=== PATIENT | female | born 1975 | race Caucasian/White ===

== ENCOUNTER 2021-01-17 13:18 | Emergency (ER) | payer MEDICAID, SELFPAY ==
[2021-01-17 13:30] VITALS: BP 136/94; PULSE 90; RESP 19; TEMP 36.7; O2SAT 98; BMI 21.9
--- NOTE | 2021-01-17 14:10 | HMH.EDUTC ---
[facility] Disposition Clinical Impression: Bronchitis Sinusitis Qualifiers: Sinusitis location: frontal Chronicity: acute Recurrence: non-recurrent Qualified Code(s): J01.10 - Acute frontal sinusitis, unspecified Disposition: Home, Self-Care Condition on Discharge: Good Instructions: DI for Sinusitis Additional Instructions: You have been tested for COVID19. Your results should be back later tonight. Take meds as directed. Prescriptions: Brompheniramine/Pseudoephed/Dm [Bromfed DM Cough Syrup 5mL] 5 - 10 ml PO Q4HP PRN 10 Days #240 syrup PRN Reason: Cough Transmission Status: Pending to [facility] # predniSONE [Prednisone 20mg Tab] 20 mg PO BID 5 Days #10 tab Transmission Status: Pending to [facility] # Azithromycin [Zithromax 500mg Tab] 500 mg PO DAILY #3 tab Transmission Status: Pending to [facility] # Referrals: Amira Chavez [Primary Care Provider] - Time of Disposition: 14:18 Medical Decision Making - [place] Inquiry Pt receiving controlled substance: No Vital Signs: 01/17/21 13:30 Temperature 98.1 F Temperature Source Oral Pulse Rate [Right Brachial] 90 Respiratory Rate 19 Blood Pressure [Right Arm] 136/94 H Blood Pressure Mean [Right Arm] 108 Blood Pressure Source [Right Arm] Automatic Cuff Blood Pressure Position [Right Arm] Sitting 02 Sat by Pulse Oximetry 98 Oxygen Delivery Method Room Air - Lab Data Lab results reviewed: Yes: I reviewed the patient's lab results. Orders (Tests/Meds): ORDERS Category Date Time Status Covid-19 Nasal PCR ([facility]) Routine Lab 01/17/21 13:40 Received [facility] HPI - General Stated complaint: covid symtoms Time Seen by Provider: 01/17/21 14:18 Mode of Arrival: Ambulatory Source of Information: Patient Limitations: No Limitations Description of Symptoms (Recalled from Triage Doc. by RN): PATIENT C/O COUGH, SORE THROAT, WEAKNESS, AND MUSCLE PAIN ON AND OFF X 2 WEEKS HEENT Symptoms (Recalled from RN notes): No Resp Symptoms (Recalled from RN notes): No Skin Symptoms (Recalled from RN notes): No MS Symptoms (Recalled from RN notes): No Functional Status (Recalled from RN notes): WNL - History of Present Illness Provider Complaint: Cough, sore throat, weakness, body aches, ear pain, sinus congestion X 2 weeks. Cough is productive. No fever. Has had some nausea and diarrhea. No rash. No vomiting. No known exposure to COVID19. Onset (ago): week(s) (2) Relieving factors: none Exacerbating factors: none Associated symptoms: cough, headaches, malaise, nausea/vomiting, shortness of breath Treatments prior to arrival: none - Related Data Previous Rx's Medication Instructions Recorded Azithromycin [Zithromax 500mg 500 mg PO DAILY #3 tab 01/17/21 Tab] Brompheniramine/Pseudoephed/Dm 5 - 10 ml PO Q4HP PRN 10 Days #240 01/17/21 [Bromfed DM Cough Syrup 5mL] syrup predniSONE [Prednisone 20mg 20 mg PO BID 5 Days #10 tab 01/17/21 Tab] Allergies Allergy/AdvReac Type Severity Reaction Status Date / Time Penicillins Allergy Verified 01/17/21 14:10 Sulfa (Sulfonamide Allergy Verified 01/17/21 14:10 Antibiotics) - Worker's Comp Is this a Worker's Comp case?: No [facility] History - Hepatitis A Screen Drug use history?: No High risk sexual behaviors?: No History of sexually transmitted infection?: No Currently employed?: No Childcare worker?: No Do you have indoor plumbing?: Yes Do you have electricity?: Yes Attestation statement:: This patient has been screened for Hepatitis A risk factors. I have reviewed the patient's past medical history: Yes - Social History Alcohol Intake: never Occupational Status: other ROS Obtained: Yes All systems reviewed & no additional complaints - Constitutional Constitutional: Reports body ache, Reports chills, Denies fever(s), Reports malaise - ENT Ears, Nose, Mouth, and Throat: Reports ear discharge, Reports facial pain, Reports
[2021-01-17 14:19] VITALS: BP 136/94; PULSE 90; RESP 19; TEMP 36.7; O2SAT 98
[2021-01-17 14:30] LABS: UTC Strep Screen (Rapid) Negative (Negative)
== END 2021-01-17 14:23 | disposition home or self-care (01) ==
PROVIDERS: Emergency Provider Physician Assistant; PCP Family Medicine
DX: Z20.822 Contact with and (suspected) exposure to COVID-19 (principal); J20.9 Acute bronchitis, unspecified; J01.10 Acute frontal sinusitis, unspecified
CPT/HCPCS: 87880; 99202; G0463; U0003

== ENCOUNTER 2021-01-30 22:28 | Emergency (ER) | payer MEDICAID, SELFPAY ==
[2021-01-30 22:37] VITALS: BP 138/95; PULSE 121; RESP 20; TEMP 37.1; O2SAT 98; BMI 21.2
--- NOTE | 2021-01-30 23:01 | ECG_ITS ---
APPROVED REPORT Exam: Resting ECG HR:98 bpm ECG Measurements Heart Rate 98 AXES WA 146 P 77 QRSd 80 QRS 82 QT 352 T 74 QTc 449 Conclusion Normal sinus rhythm Normal ECG Electronically signed by : Jared Canales, 01/31/2021 09:06:31
[2021-01-30 23:04] LABS: Basophils # 0.1 K/mm3 (0-0.2); Basophils % 0.9 % (0.1-2.0); Eosinophils # 0.1 K/mm3 (0.0-0.4); Eosinophils % 1.7 % (0.1-12.0); Hematocrit 41.5 % (37.0-47.0); Hemoglobin 13.6 g/dL (12.2-16.2); Lymphocytes # 3.8 K/mm3 (0.7-4.5); Lymphocytes % 61.7 % (10-50); Mean Corpuscular HGB Conc 32.7 g/dL (31.8-35.4); Mean Corpuscular Hemoglobin 30.1 pg (27.0-31.2); Mean Corpuscular Volume 92.1 fl (81-99); Mean Platelet Volume 7.3 fl (7.4-10.4); Monocytes # 0.3 K/mm3 (0.1-1.0); Neutrophils # 1.9 K/mm3 (1.8-7.8); Neutrophils % 30.8 % (37.0-80.0); Platelet Count 270 K/mm3 (142-424); Red Blood Count 4.51 M/mm3 (4.20-5.40); Red Cell Distribution Width 14.2 % (11.5-17.5); White Blood Count 6.1 K/mm3 (4.8-10.8)
[2021-01-30 23:07] LABS: Alanine Aminotransferase 21 U/L (12-78); Albumin Level 4.8 g/dl (3.5-5.0); Albumin/Globulin Ratio 1.7 (1.1-1.8); Alkaline Phosphatase 52 U/L (38-126); Anion Gap 11.9 mEq/L (5-15); Aspartate Amino Transferase 38 U/L (14-36); Bilirubin,Total 0.5 mg/dl (0.2-1.3); Blood Urea Nitrogen 10 mg/dl (7-17); Carbon Dioxide 21 mmol/L (22.0-30.0); Chloride 116 mmol/L (98-107); Creatinine Clearance Estimated 122 mL/min (50-200); Estimated Glomerular Filt Rate 108 ml/min (>60); GFR (African American) 131 ML/MIN (>60); Globulin 2.9 g/dL (1.3-3.2); Glucose 117 mg/dl (74-100); MANUAL DIFFERENTIAL MANUAL DIFFERENTIAL (MANUAL DIFF); Potassium 3.9 mmoL/L (3.5-5.1); Sodium 145 mmol/L (136-145); Total Protein,Serum 7.7 g/dl (6.3-8.2)
[2021-01-30 23:07] LABS: Microscopic, Urine URINE MICROSCOPIC (MICROSCOPIC)
[2021-01-30 23:08] LABS: Ethyl Alcohol 217 mg/dl (0-10)
[2021-01-30 23:11] LABS: Appearance,Urine CLEAR (Clear); Bilirubin,Urine Negative (Negative); Blood, Urine Negative (Negative); Color,Urine YELLOW (Yellow); Glucose,Urine (UA) Negative (Negative); Ketones,Urine Negative (Negative); Leukocyte Esterase,Urine Negative (Negative); Nitrate,Urine Negative (Negative); Protein,Urine Negative (Negative); Specific Gravity, Urine <= 1.005 (1.005-1.030); Urobilinogen,Urine 0.2 EU/dl (0.2)
[2021-01-30 23:13] LABS: Acetaminophen < 10 ug/ml (10-30); Salicylate < 1.0 mg/dL (2.0-20.0)
--- NOTE | 2021-01-30 23:19 | HMH.EDMCLR ---
ED Disposition Clinical Impression: Self-harm, Alcohol use Depression Qualifiers: Depression Type: major depressive disorder Major depression recurrence: unspecified whether recurrent Active/Remission status: remission status unspecified Qualified Code(s): F32.9 - Major depressive disorder, single episode, unspecified Disposition: Xfer Psychiatric Hosp Condition on Discharge: Good Instructions: DI for Depression -- Adult Additional Instructions: see pcp for follow up Referrals: Amira Chavez [Primary Care Provider] - - Critical Care Critical Care Time: No Attestation: On 01/30/21, the high probability of a clinically significant, sudden or life threatening deterioration of the following system(s) required my full and direct attention, intervention and personal management. The time I documented below is in addition to time spent performing reported procedures but includes the following listed in this critical care notation. Medical Decision Making - Medical Records Medical records reviewed: Yes: I reviewed the patient's medical records. - [place] Inquiry Pt receiving controlled substance: No Vital Signs: 01/30/21 22:37 01/30/21 23:54 01/31/21 00:39 Temperature 98.7 F Temperature Source Oral Pulse Rate 90 87 Pulse Rate [Right] 121 H Respiratory Rate 20 Blood Pressure 137/88 122/83 Blood Pressure [Right Arm] 138/95 H Blood Pressure Mean 95 Blood Pressure Mean [Right Arm] 109 02 Sat by Pulse Oximetry 98 96 95 01/31/21 01:00 01/31/21 01:30 01/31/21 02:24 Temperature Temperature Source Pulse Rate 88 82 82 Pulse Rate [Right] Respiratory Rate Blood Pressure 116/82 140/96 H 121/77 Blood Pressure [Right Arm] Blood Pressure Mean 95 106 Blood Pressure Mean [Right Arm] 02 Sat by Pulse Oximetry 95 97 97 01/31/21 02:30 01/31/21 03:00 Temperature Temperature Source Pulse Rate 78 84 Pulse Rate [Right] Respiratory Rate Blood Pressure 123/78 126/79 Blood Pressure [Right Arm] Blood Pressure Mean 93 95 Blood Pressure Mean [Right Arm] 02 Sat by Pulse Oximetry 97 97 - Lab Data Lab results reviewed: Yes: I reviewed the patient's lab results. Lab Results 01/30/21 22:50: WBC 6.1, RBC 4.51, Hgb 13.6, Hct 41.5, MCV 92.1, MCH 30.1, MCHC 32.7, RDW 14.2, Plt Count 270, MPV 7.3 L, Neut % (Auto) 30.8 L, Lymph % (Auto) 61.7 H, Lane % (Auto) 5.0, Eos % (Auto) 1.7, Baso % (Auto) 0.9, Neut # (Auto) 1.9, Lymph # (Auto) 3.8, Lane # (Auto) 0.3, Eos # (Auto) 0.1, Baso # (Auto) 0.1, Total Counted 100, Neutrophils % (Manual) 33 L, Lymphocytes % (Manual) 46, Atypical Lymphs % 9.0, Monocytes % (Manual) 9, Eosinophils % (Manual) 3, Platelet Estimate Normal, RBC Morphology Normal 01/30/21 22:50: Sodium 145, Potassium 3.9, Chloride 116 H, Carbon Dioxide 21 L, Anion Gap 11.9, BUN 10, Creatinine 0.60, Estimated Creat Clear 122, Estimated GFR 108, Est GFR ( Amer) 131, Glucose 117 H, Calcium 9.0, Total Bilirubin 0.5, AST 38 H, ALT 21, Alkaline Phosphatase 52, Total Protein 7.7, Albumin 4.8, Globulin 2.9, Albumin/Globulin Ratio 1.7, TSH 2.02, Salicylates < 1.0 L, Acetaminophen < 10 L 01/30/21 22:50: Plasma/Serum Alcohol 217 H 01/30/21 22:50: Free T4 1.34 01/30/21 23:00: Urine Color Yellow, Urine Appearance Clear, Urine pH 6.0, Ur Specific [place] <= 1.005, Urine Protein Negative, Urine Glucose (UA) Negative, Urine Ketones Negative, Urine Blood Negative, Urine Nitrate Negative, Urine Bilirubin Negative, Urine Urobilinogen 0.2, Ur Leukocyte Esterase Negative, Ur Squamous Epith Cells 3-5 01/30/21 23:00: Urine Opiates Screen Negative, Urine Methadone Screen Negative, Ur Barbituates Screen Negative, Ur Phencyclidine Scrn Negative, Ur Amphetamines Screen Negative, U Benzodiazepines Scrn Negative, Urine Cocaine Screen Negative, U Marijuana (THC) Screen Positive H 01/31/21 02:38: Plasma/Serum Alcohol 127 H Result diagrams: 01/30/21 22:50 01/30/21 22:50 Orders (Tests/Meds): ED MEDICATION
[2021-01-30 23:21] LABS: Eosinophils % 3 % (0-3); Lymphocytes % 46 % (10-50); Monocytes % 9 % (2-9); Neutrophils % 33 % (42-76); Platelet Estimate Normal; RBC Morphology Normal; Total Cells Counted 100
[2021-01-30 23:22] LABS: Barbiturates Screen,Urine Negative ng/ml (<200)
[2021-01-30 23:23] LABS: Amphetamine/Metha Screen,Urine Negative ng/ml (<1000); Benzodiazepines Screen,Urine Negative ng/ml (<200)
[2021-01-30 23:24] LABS: Free T4 (Free Thyroxine) 1.34 ng/dl (0.78-2.19)
[2021-01-30 23:24] LABS: Cocaine Screen,Urine Negative ng/ml (<300)
[2021-01-30 23:25] LABS: Cannabinoid Screen,Urine Positive ng/ml (<50); Methadone Screen,Urine Negative ng/ml (<300)
[2021-01-30 23:26] LABS: Opiate Screen,Urine Negative ng/ml (<300)
[2021-01-30 23:27] LABS: Phencyclidine Screen,Urine Negative ng/ml (<25)
[2021-01-30 23:38] LABS: Thyroid Stimulating Hormone 2.02 uIU/mL (0.465-4.68)
[2021-01-30 23:54] VITALS: BP 137/88; PULSE 90; O2SAT 96
[2021-01-31] VITALS (7 sets, daily range): BP systolic 116–140; BP diastolic 77–96; PULSE 78–88; RESP 16; TEMP 37.1; O2SAT 95–98
[2021-01-31 02:54] LABS: Ethyl Alcohol 127 mg/dl (0-10)
[2021-01-31 05:13] LABS: Ethyl Alcohol 84 mg/dl (0-10)
== END 2021-01-31 05:23 ==
PROVIDERS: Emergency Provider Emergency Medicine; PCP Family Medicine
DX: F32.9 Major depressive disorder, single episode, unspecified (principal); F10.10 Alcohol abuse, uncomplicated; F12.10 Cannabis abuse, uncomplicated; F17.210 Nicotine dependence, cigarettes, uncomplicated
CPT/HCPCS: 80053; 80305; 80329; 81001; 84439; 84443; 85007; 85025; 93005; 96365; 96366; 99283; J2405